=== PATIENT | male | born 1990 | race Caucasian/White ===

== ENCOUNTER → 2019-07-25 | Outpatient (REF) | payer MEDICAID, OTHER ==
[2019-07-25 17:47] LABS: ALBUMIN 4.3 GM/DL (3.2-5.2); ALT/SGPT 20 U/L (12-78); BILIRUBIN,TOTAL 0.5 MG/DL (0.2-1.0); BLOOD UREA NITROGEN 12 MG/DL (7-18); CALCIUM LEVEL 9.7 MG/DL (8.5-10.1); CARBON DIOXIDE LEVEL 32 MEQ/L (21-32); CHLORIDE LEVEL 105 MEQ/L (98-107); CPK CREATINE PHOSPHOKINASE 183 U/L (39-308); CREATININE FOR GFR 0.89 MG/DL (0.70-1.30); GLOMERULAR FILTRATION RATE > 60.0 (>60); GLUCOSE, FASTING 96 MG/DL (70-100); POTASSIUM SERUM 4.6 MEQ/L (3.5-5.1); SODIUM LEVEL 140 MEQ/L (136-145); TOTAL PROTEIN 7.5 GM/DL (6.4-8.2)
[2019-07-25 18:33] LABS: HIV 1&2 SCREEN CENTAUR NEGATIVE (NEGATIVE)
[2019-07-31 15:18] LABS: HEPATITIS C QUANTITATION HCV Not Detected IU/mL (.)
== END ==
LOC: M LAB REF 17:04
PROVIDERS: ATTEND Family Medicine Addiction Medicine
DX: Z13.9 Encounter for screening, unspecified (principal)

== ENCOUNTER → 2019-08-14 | Outpatient (REF) | payer MEDICAID, OTHER ==
[2019-08-14 18:39] LABS: RHEUMATOID FACTOR QUANT < 10.0 IU/ML (<15.0); TOTAL PROTEIN 7.1 GM/DL (6.4-8.2)
[2019-08-14 18:58] LABS: VITAMIN B12 LEVEL 510 PG/ML
[2019-08-14 18:59] LABS: FOLATE 3.4 NG/ML
[2019-08-15 13:21] LABS: ALBUMIN 4.69 GM/DL (3.29-5.55); ALPHA-1-GLOBULIN % 3.8 % (2.9-4.9); ALPHA-1-GLOBULINS 0.27 GM/DL (0.17-0.41); ALPHA-2-GLOBULINS 0.55 GM/DL (0.42-0.99); ALPHA-2-GLOBULINS % 7.7 % (7.1-11.8); BETA-1-GLOBULINS 0.39 GM/DL (0.28-0.60); BETA-1-GLOBULINS % 5.5 % (4.7-7.2); BETA-2-GLOBULINS 0.33 GM/DL (0.19-0.55); BETA-2-GLOBULINS % 4.6 % (3.2-6.5); GAMMA GLOBULIN % 12.4 % (11.1-18.8); GAMMA GLOBULINS 0.88 GM/DL (0.65-1.58)
[2019-08-16 14:26] LABS: ANTINUCLEAR ANTIBODIES DIRECT Negative (Negative)
[2019-08-20 10:15] LABS: DRVV SCREEN 34.6 SEC
[2019-08-20 10:21] LABS: PTT LUPUS TYPE ANTICOAG SCREEN 0.8 (0-1.2)
== END ==
LOC: M LABNEURO 13:11
PROVIDERS: ATTEND Psychiatry & Neurology Neurology
DX: G56.01 Carpal tunnel syndrome, right upper limb (principal); G56.02 Carpal tunnel syndrome, left upper limb; M54.2 Cervicalgia; M54.5 Low back pain

== ENCOUNTER 2023-02-09 12:44 | Emergency (ER) | payer OTHER ==
[~2023-02-09] VITALS: Ht 175.3 cm; Wt 83.9 kg
[2023-02-09] MEDS ORDERED: LOSA50TA28 (13:07)
[2023-02-09] MEDS ORDERED: LEXA1TAB2 PO (13:07)
[2023-02-09] MEDS ORDERED: HYDR-643 (13:07)
[2023-02-09 16:37] VITALS: BP 136/99
== END 2023-02-09 16:39 | disposition home or self-care (01) ==
LOC: M ED 12:44
DX: F19.10 Other psychoactive substance abuse, uncomplicated (principal); Z59.811 Housing instability, housed, with risk of homelessness; F41.9 Anxiety disorder, unspecified; F32.A Depression, unspecified; F17.210 Nicotine dependence, cigarettes, uncomplicated